=== PATIENT | female | born 1965 | race Caucasian/White ===

== ENCOUNTER 2016-12-03 19:27 | Emergency (ER) | payer SELFPAY ==
[2016-12-03 19:40] VITALS: BP 132/83; PULSE 79; TEMP 98.1; BMI 21.9
[2016-12-03 19:41] LABS: PH,URINE 5.5 (4.5-8); URINE APPEARANCE Clear; URINE BILIRUBIN Negative (NEGATIVE); URINE BLOOD 1 (NEGATIVE); URINE COLOR YELLOW; URINE GLUCOSE (UA) Negative (NEGATIVE); URINE KETONE Negative (NEGATIVE); URINE LEUK ESTERASE Negative (NEGATIVE); URINE NITRITE Negative (NEGATIVE); URINE PROTEIN Negative (NEGATIVE); URINE UROBILINOGEN 0.2 E.U/dl (0.2-1.0)
--- NOTE | 2016-12-03 21:07 | PDOC ---
History of Present Illness - General Chief Complaint: Pain Stated Complaint: PELVIC PAIN Time Seen by Provider: 12/03/16 19:29 - History of Present Illness Initial Comments: This 51-year-old woman with long history of depression/anxiety and insomnia, presents with several week history of pelvic pain radiating to the right flank. She states that the pain intermittently becomes more severe and she is currently feeling more severe pain. She was told by her general medical doctor that she has blood in her urine although it is not visibly bloody. She states that she has been told she has no urinary tract infection and was referred to a urologist for further workup. Patient states that she's been trying to find a urologist but most cannot see her for several weeks and many are not covered by her insurance. Patient also has had progressive urgency incontinence/ overactive bladder type symptoms. She has not yet had full workup of this condition and is not on any medications for it currently. No history of burning with urination, bladder or kidney infection. Past History - Past Medical History Allergies/Adverse Reactions: Allergies Allergy/AdvReac Type Severity Reaction Status Date / Time No Known Allergies Allergy Verified 03/18/16 08:10 Home Medications: Ambulatory Orders Clonazepam [Klonopin] 6 mg PO HS 06/26/13 Bupropion HCl [Wellbutrin -] 200 mg PO DAILY 03/18/16 Dextroamphetamine/Amphetamine [Adderall Xr 15 mg Capsule] 15 mg PO DAILY Lamotrigine [Lamictal] 400 mg PO HS 03/18/16 Lurasidone HCl [Latuda] 60 mg PO HS 03/18/16 Psychiatric Problems: Yes (anxiety, depression for many years) Other medical history: INSOMNIA - Immunization History Immunization Up to Date: No - Psycho/Social/Smoking Cessation Hx Anxiety: Yes Suicidal Ideation: No Smoking Status: No Smoking History: Current every day smoker Have you smoked in the past 12 months: Yes Number of Cigarettes Smoked Daily: 20 Information on smoking cessation initiated: Yes 'Breaking Loose' booklet given: 12/03/16 Hx Alcohol Use: Yes Drug/Substance Use Hx: No Substance Use Type: Alcohol Review of Systems - Review of Systems Able to Perform ROS?: Yes Comments:: 12 point review of systems is negative except for what is noted in the history of present illness *Physical Exam - Vital Signs Last Vital Signs Temp Pulse Resp BP Pulse Ox 98.1 F 79 16 132/83 99 12/03/16 19:38 12/03/16 19:38 12/03/16 19:38 12/03/16 19:38 12/03/16 19:38 - Physical Exam Comments: Adult female, alert and oriented 3, in mild distress secondary to right flank pain Vital signs as noted Adult female, alert and oriented 3, in no acute distress Vital signs as noted HEAD: No contusions, abrasions or lacerations of the scalp; no facial ecchymosis , deformities or tenderness EYES: Pupils equal, round and reactive to light, extraocular movements intact, sclera anicteric, conjunctiva clear PHARYNX: No erythema, exudate or edema; mucous membranes moist NECK: Supple, nontender, no masses or bruits LUNGS: Clear to auscultation bilaterally CARDIAC: S1, S2 normal; no extra sounds, rubs or murmurs heard ABDOMEN:Normoactive bowel sounds, right flank tenderness, no masses, no organomegaly EXTREMITIES: Normal range of motion, no edema,deformity or tenderness NEUROLOGICAL: Cranial nerves II through XII grossly intact. Normal speech, normal gait.moving all 4 extremities equally, Sensation intact in all extremities. PSYCH: Normal mood, normal affect. SKIN: Warm, Dry, normal turgor, no rashes or lesions noted. ED Treatment Course - ADDITIONAL ORDERS Additional order review: Laboratory Results 12/03/16 19:30 Urine Color Yellow Urine Appearance Clear Urine pH 5.5 Ur Specific Taylor 1.015 Urine Protein Negative Urine Glucose (UA) Negative Urine Ketones Negative Urine Blood 1 H Urine Nitrite Negative Urine Bilirubin Negative Urine Urobilinogen 0.2 e.u/dl Ur Leukocyte Esterase Negative Urine RBC 5-8 Urine WBC 3-5 Ur Epithelial Cells 10-15 Progress Note - Progress Note Progress Note: Urinalysis shows 1+ blood in dipstick: 5-8 red blood cells/3-5 white blood cells per high-power field Because of this patient's progressive right flank/pelvic pain and microscopic hematuria, will have a renal stone protocol noncontrast CT to evaluate for renal stone/hydronephrosis or other acute abnormalities. Noncontrast abdominal/pelvic CT shows no evidence of hydronephrosis/hydroureter or renal stones. There is no mass/obstruction/free fluid or other acute abnormality. Results discussed with the patient. She should follow-up with urologist as originally planned within the next week for workup of her urinary symptoms as well as her pelvic pain. She should return to the emergency room if she has severe pain or develops vomiting/fever. *DC/Admit/Observation/Transfer Diagnosis at time of Disposition: Urinary frequency, Pelvic pain - Discharge Dispostion Disposition: HOME Condition at time of disposition: Stable - Referrals Referrals: STAFF,NOT ON [Primary Care Provider] - Manfred Hernandez MD [Staff Physician] - Call tomorrow - Patient Instructions Printed Discharge Instructions: Chronic Pelvic Pain Additional Instructions: Follow-up with urology group (Dr. Hernandez) within the next week Return to ER if your symptoms worsen
== END 2016-12-03 23:23 | disposition home or self-care (01) ==
LOC: FER 19:27
DX: R35.0 Frequency of micturition (principal); R10.2 Pelvic and perineal pain; F17.210 Nicotine dependence, cigarettes, uncomplicated; F41.8 Other specified anxiety disorders; G47.00 Insomnia, unspecified
CPT/HCPCS: 74176; 81003; 81015; 99282-25

== ENCOUNTER 2018-02-05 11:40 | Emergency (ER) | payer OTHER ==
[2018-02-05 12:04] VITALS: BP 116/79; PULSE 62; TEMP 98.9; BMI 21.0
[2018-02-05] MEDS ORDERED: NAPROXEN 500 MG TABLET (FP) PO ONE (13:08)
[2018-02-05] MEDS ORDERED: ONDANSETRON 4 MG TABLET PO ONE ×2 (13:08→13:12)
[2018-02-05] MEDS ORDERED: NAPROXEN 500 MG TABLET (FP) ONE (13:10)
[2018-02-05] MEDS ORDERED: ONDANSETRON *ODT* 4 MG TABLET ONE (13:11)
--- NOTE | 2018-02-05 13:14 | PDOC ---
History of Present Illness - General Chief Complaint: Cold Symptoms Stated Complaint: COLD SYMPTOMS Time Seen by Provider: 02/05/18 12:24 - History of Present Illness Initial Comments: 02/05/18 13:09 52-year-old female with a history of anxiety, depression presents the emergency department with 6 days of cold symptoms. She reports 6 days ago she began to have a sore throat, body aches, and subjective fevers as well as a nonproductive cough. Over the last 2 days she reports her chest congestion became worse and she also developed a gradual onset global headache. She reports significant pain in her lower anterior ribs when coughing. She also reports losing her voice 3 days ago but reports improvement in her voice over the last 24 hours. She has tried NyQuil and theraflu with minimal improvement in symptoms. Reports fever to 101 two days ago. She has not seen her primary care doctor. She presented to the emergency department today because her daughter urged her to. The patient reports multiple sick contacts when visiting her mother in the hospital in [place] last week. Denies shortness of breath, stiff neck, rashes, chest pain, abdominal pain, dysuria, lower extremity edema, focal weakness or numbness. Past History - Past Medical History Allergies/Adverse Reactions: Allergies Allergy/AdvReac Type Severity Reaction Status Date / Time No Known Allergies Allergy Verified 02/05/18 11:43 Home Medications: Ambulatory Orders Clonazepam [Klonopin] 6 mg PO HS 06/26/13 Bupropion HCl [Wellbutrin -] 200 mg PO DAILY 03/18/16 Dextroamphetamine/Amphetamine [Adderall Xr 15 mg Capsule] 15 mg PO DAILY Lamotrigine [Lamictal] 400 mg PO HS 03/18/16 Lurasidone HCl [Latuda] 60 mg PO HS 03/18/16 COPD: No Psychiatric Problems: Yes (anxiety, depression for many years) - Immunization History Immunization Up to Date: No - Suicide/Smoking/Psychosocial Hx Smoking Status: No Smoking History: Current every day smoker Have you smoked in the past 12 months: Yes Number of Cigarettes Smoked Daily: 20 Information on smoking cessation initiated: Yes 'Breaking Loose' booklet given: 12/03/16 Hx Alcohol Use: Yes Drug/Substance Use Hx: No Substance Use Type: Alcohol Review of Systems - Review of Systems Comments:: 02/05/18 13:12 GENERAL/CONSTITUTIONAL: +fever, no chills. No weakness. HEAD, EYES, EARS, NOSE AND THROAT: No change in vision. No ear pain or discharge. +sore throat. GASTROINTESTINAL: +nausea, no vomiting, diarrhea or constipation. GENITOURINARY: No dysuria, frequency, or change in urination. CARDIOVASCULAR: No chest pain or shortness of breath. RESPIRATORY: +cough, no wheezing, or hemoptysis. MUSCULOSKELETAL: +bodyaches SKIN: No rash NEUROLOGIC: +headache, no vertigo, loss of consciousness, or change in strength/ sensation. ENDOCRINE: No increased thirst. No abnormal weight change. HEMATOLOGIC/LYMPHATIC: No anemia, easy bleeding, or history of blood clots. ALLERGIC/IMMUNOLOGIC: No hives or skin allergy. *Physical Exam - Vital Signs Last Vital Signs Temp Pulse Resp BP Pulse Ox 98.9 F 62 16 116/79 99 02/05/18 11:42 02/05/18 11:42 02/05/18 11:42 02/05/18 11:42 02/05/18 11:42 - Physical Exam Comments: 02/05/18 13:13 GENERAL: Awake, alert, and fully oriented, in no acute distress HEAD: No signs of trauma EYES: PERRLA, EOMI, sclera anicteric, conjunctiva clear ENT: Auricles normal inspection, hearing grossly normal, nares patent, oropharynx clear without exudates. Moist mucosa NECK: Normal ROM, supple, no lymphadenopathy, JVD, or masses LUNGS: Breath sounds equal, clear to auscultation bilaterally. No wheezes, and no crackles HEART: Regular rate and rhythm, normal S1 and S2, no murmurs, rubs or gallops ABDOMEN: Soft, nontender, normoactive bowel sounds. No guarding, no rebound. No masses EXTREMITIES: Normal range of motion, no edema. No clubbing or cyanosis. No cords, erythema, or tenderness NEUROLOGICAL: Normal speech, cranial nerves intact, negative pronator drift, 5/ 5 strength in all 4 extremities, normal sensation to light touch in all 4 extremities, normal cerebellar exam, normal gait, normal reflexes and tone SKIN: Warm, Dry, normal turgor, no rashes or lesions noted. ED Treatment Course - RADIOLOGY Radiology Studies Ordered: Category Date Time Status CHEST PA & LAT [RAD] Stat Radiology 02/05/18 13:07 Ordered Medical Decision Making - Medical Decision Making 02/05/18 13:13 52-year-old female presents with 6 days of cold symptoms. Vitals within normal limits. Exam normal, lungs are clear with no crackles. Symptoms likely secondary to viral syndrome, possibly the flu however patient is out of the treatment window. Pain in her lower anterior ribs is likely secondary to soreness from coughing. We will obtain a chest x-ray to rule out pneumonia given length of symptoms and provide symptomatic control and reassess. 02/05/18 13:55 X-ray negative. Patient reports some improvement in symptoms after naproxen and Zofran. Likely viral syndrome with bronchitis and possible sinusitis. Will prescribe azithromycin given recent fever and advised patient to follow up with primary doctor within 2 days. Patient requests discharge home. I discussed the physical exam findings, ancillary test results and final diagnoses with the patient. I answered all of the patient's questions. The patient was satisfied with the care received and felt comfortable with the discharge plan and treatment plan. The patient will call their primary care physician within 24 hours to arrange follow-up and will return to the Emergency Department with any new, persistent or worsening symptoms. *DC/Admit/Observation/Transfer Diagnosis at time of Disposition: Bronchitis - Discharge Dispostion Disposition: HOME Condition at time of disposition: Good Admit: No - Referrals Referrals: Lula Arango MD [Primary Care Provider] - - Patient Instructions Printed Discharge Instructions: DI for Acute Bronchitis, DI for Viral Upper Respiratory Infection -- Adult Additional Instructions: Follow-up with your primary care doctor in 2 days. Take the antibiotics as prescribed. Stay hydrated and drink plenty of fluids. Return to the emergency department if you have any new, worsening or concerning symptoms. - Post Discharge Activity - Attestations Physician Attestion: 02/05/18 13:57 I, Dr. Urmila Giordano MD, attest that this document has been prepared under my direction and personally reviewed by me in its entirety. I further attest, that it accurately reflects all work, treatment, procedures and medical decision -making performed by me.
[2018-02-05] MEDS ORDERED: AZITHROMYCIN 500 MG TABLET PO ONE (13:57)
[2018-02-05] MEDS ORDERED: AZITHROMYCIN 500 MG TABLET ONE (14:00)
== END 2018-02-05 14:06 | disposition home or self-care (01) ==
LOC: FER 11:40
DX: J40 Bronchitis, not specified as acute or chronic (principal)
CPT/HCPCS: 71046-TC-FY; 99282-25

== ENCOUNTER 2018-03-09 09:48 | Emergency (ER) | payer OTHER ==
--- NOTE | 2018-03-09 09:53 | PDOC ---
History of Present Illness - General Chief Complaint: Respiratory Stated Complaint: PERSISTANT COUGH WEAK Time Seen by Provider: 03/09/18 09:51 History Source: Patient (Patient walked in complaining of persistent cough, generalized weakness, on and off foe at least a month. was seen then , dg as bronchitis. Smoker , decreased lately No flu vaccine ) Exam Limitations: No Limitations - History of Present Illness Timing/Duration: unsure, getting worse Severity: moderate Associated Symptoms: reports: loss of appetite, weakness Past History - Travel Traveled outside of the country in the last 30 days: No Close contact w/someone who was outside of country & ill: No - Past Medical History Allergies/Adverse Reactions: Allergies Allergy/AdvReac Type Severity Reaction Status Date / Time No Known Allergies Allergy Verified 03/09/18 09:49 Home Medications: Ambulatory Orders Clonazepam [Klonopin] 2 mg PO HS 06/26/13 Bupropion HCl [Wellbutrin -] 75 mg PO DAILY 03/18/16 Ibuprofen [Motrin -] 400 mg PO TID #21 tablet 03/09/18 Sulfamethoxazole/Trimethoprim [Bactrim Ds -] 1 tab PO BID #14 tablet 03/09/18 COPD: No Psychiatric Problems: Yes (anxiety, depression for many years) - Immunization History Immunization Up to Date: No - Suicide/Smoking/Psychosocial Hx Smoking Status: No Smoking History: Current every day smoker Have you smoked in the past 12 months: Yes Number of Cigarettes Smoked Daily: 20 'Breaking Loose' booklet given: 12/03/16 Hx Alcohol Use: Yes Drug/Substance Use Hx: No Substance Use Type: Alcohol Review of Systems - Review of Systems Able to Perform ROS?: Yes Is the patient limited [place] Citizen proficient: Yes Constitutional: Yes: See HPI, Malaise HEENTM: Yes: See HPI Respiratory: Yes: Cough Cardiac (ROS): No: Symptoms Reported, See HPI, Chest Pain, Edema, Irregular Heart Rate, Lightheadedness, Palpitations, Syncope, Chest Tightness, Other ABD/GI: No: Symptoms Reported, See HPI, Abdominal Distended, Abd. Pain w/ defecation, Blood Streaked Bowels, Constipated, Diarrhea, Difficulty Swallowing , Nausea, Poor Appetite, Poor Fluid Intake, Rectal Bleeding, Vomiting, Indigestion, Abdominal cramping, Tarry Stools, Other Psychiatric: Yes: Anxiety ED Treatment Course - LABORATORY CBC & Chemistry Diagram: 03/09/18 11:58 03/09/18 11:58 *DC/Admit/Observation/Transfer Diagnosis at time of Disposition: Cough, Bronchitis - Discharge Dispostion Disposition: HOME Condition at time of disposition: Stable Admit: No - Prescriptions Prescriptions: Ibuprofen [Motrin -] 400 mg PO TID #21 tablet Sulfamethoxazole/Trimethoprim [Bactrim Ds -] 1 tab PO BID #14 tablet - Referrals - Patient Instructions Printed Discharge Instructions: DI for Chronic Bronchitis, How to Quit Smoking , All Forms of Smoking Are Bad for You Additional Instructions: QUIT SMOKING !!!!! - Post Discharge Activity
[2018-03-09 10:11] VITALS: BP 133/89; PULSE 87; TEMP 100; BMI 21.0
[2018-03-09] MEDS ORDERED: ALBUTEROL SO4 2.5/IPRATROPIUM 0.5 INH SOL 3 ML VIAL.NEB. NEB ONE ×2 (11:37→12:16)
[2018-03-09 12:30] LABS: BASO % 0.6 % (0-2.0); EOS % 4.6 % (0-4.5); HEMATOCRIT 38.1 % (32.4-45.2); HEMOGLOBIN 12.6 GM/dl (10.7-15.3); LYMPH % 12.7 % (8-40); MCH 29.3 pg (25.7-33.7); MEAN CELL VOLUME 88.7 fl (80-96); MEAN PLT VOLUME 8.5 fl (7.5-11.1); MONO % 7.4 % (3.8-10.2); NEUT % 74.7 % (42.8-82.8); PLATELET COUNT 212 K/MM3 (134-434); RDW 13.6 % (11.6-15.6)
[2018-03-09 13:03] LABS: ALBUMIN 3.8 g/dl (3.4-5.0); ANION GAP 5 (8-16); BLOOD UREA NITROGEN 17 mg/dL (7-18); CALCIUM 8.7 mg/dL (8.5-10.1); CHLORIDE 106 mmol/L (98-107); CO2 30 mmol/L (21-32); GLUCOSE,RANDOM 92 mg/dL (74-106); POTASSIUM 4.1 mmol/L (3.5-5.1); SGPT/ALT 28 U/L (12-78); SODIUM 141 mmol/L (136-145)
[2018-03-09 13:06] LABS: ALK PHOS 81 U/L (45-117); BILIRUBIN,TOTAL 0.2 mg/dL (0.2-1.0); CREATININE 0.7 mg/dL (0.55-1.02); SGOT/AST 21 U/L (15-37); TOT PROT 6.5 g/dl (6.4-8.2)
[2018-03-09] MEDS ORDERED: SULFAMETHOXAZOLE/TRIMETHOPRIM 800MG/160MG D.S. TABLET PO ONE (13:10)
[2018-03-09] MEDS ORDERED: IBUPROFEN 400 MG TABLET (FP) PO ONE ×2 (13:10→13:14)
[2018-03-09] MEDS ORDERED: SULFAMETHOXAZOLE/TRIMETHOPRIM 800MG/160MG D.S. TABLET ONE (13:14)
== END 2018-03-09 13:22 | disposition home or self-care (01) ==
LOC: FER 09:48
PROC: 3E0F7GC Introduction of Other Therapeutic Substance into Respiratory Tract, Via Natural or Artificial Opening (ICD-10-PCS; principal; 2018-03-09)
DX: J40 Bronchitis, not specified as acute or chronic (principal); R05 Cough; F17.210 Nicotine dependence, cigarettes, uncomplicated; F41.8 Other specified anxiety disorders
CPT/HCPCS: 36415; 71046-TC-FY; 80053; 85025; 94640; 99282-25

== ENCOUNTER 2019-12-15 18:29 | Observation (INO) | payer OTHER ==
--- NOTE | 2019-12-15 18:38 | PDOC ---
Rapid Medical Evaluation Time Seen by Provider: 12/15/19 18:32 Medical Evaluation: Allergies Allergy/AdvReac Type Severity Reaction Status Date / Time No Known Allergies Allergy Verified 12/15/19 18:32 12/15/19 18:33 I have performed a brief in-person evaluation of this patient. The patient presents with a chief complaint of: CP and BRUNSON today. H/o anxiety, depression, HTN , CAD w/ 1 stent, former smoker Pertinent physical exam findings:ida uncomfortable, stable I have ordered the following:ekg/cxr/labs The patient will proceed to the ED for further evaluation Discharge Disposition - Diagnosis Chest pain Qualifiers: Chest pain type: unspecified Qualified Code(s): R07.9 - Chest pain, unspecified - Referrals - Patient Instructions - Post Discharge Activity
[2019-12-15 18:39] VITALS: BMI 21.9
[2019-12-15 21:23] LABS: BASO % 0.7 % (0-2.0); EOS % 2.6 % (0-4.5); HEMATOCRIT 38.7 % (32.4-45.2); LYMPH % 29.9 % (8-40); MCH 29.7 pg (25.7-33.7); MCHC 33.6 g/dl (32.0-36.0); MEAN CELL VOLUME 88.5 fl (80-96); MEAN PLT VOLUME 8.8 fl (7.5-11.1); MONO % 4.8 % (3.8-10.2); PLATELET COUNT 309 K/MM3 (134-434); RBC 4.37 M/mm3 (3.60-5.2); RDW 13.7 % (11.6-15.6); WHITE BLOOD COUNT 5.6 K/mm3 (4.0-10.0)
[2019-12-15 21:58] LABS: ALBUMIN 4.4 g/dl (3.4-5.0); ALK PHOS 67 U/L (45-117); ANION GAP 8 MMOL/L (8-16); BILIRUBIN,TOTAL 0.5 mg/dL (0.2-1); BLOOD UREA NITROGEN 17.7 mg/dL (7-18); CALCIUM 9.2 mg/dL (8.5-10.1); CHLORIDE 103 mmol/L (98-107); CO2 26 mmol/L (21-32); CREATININE 0.8 mg/dL (0.55-1.3); GLUCOSE,RANDOM 62 mg/dL (74-106); POTASSIUM 4.5 mmol/L (3.5-5.1); SGOT/AST 21 U/L (15-37); SGPT/ALT 27 U/L (13-61); SODIUM 137 mmol/L (136-145); TOT PROT 7.2 g/dl (6.4-8.2)
[2019-12-15] MEDS ORDERED: ASPIRIN 325 MG TABLET PO ONE (22:47)
--- NOTE | 2019-12-15 22:47 | PDOC ---
History of Present Illness - General Chief Complaint: Chest Pain Stated Complaint: CHEST PAIN Time Seen by Provider: 12/15/19 18:32 History Source: Patient Exam Limitations: No Limitations Past History - Past Medical History Allergies/Adverse Reactions: Allergies Allergy/AdvReac Type Severity Reaction Status Date / Time No Known Allergies Allergy Verified 12/15/19 18:32 Home Medications: Ambulatory Orders Clonazepam [Klonopin] 2 mg PO HS 06/26/13 Bupropion HCl [Wellbutrin -] 75 mg PO DAILY 03/18/16 Ibuprofen [Motrin -] 400 mg PO TID #21 tablet 03/09/18 Sulfamethoxazole/Trimethoprim [Bactrim Ds -] 1 tab PO BID #14 tablet 03/09/18 Cardiac Disorders: Yes (STENT X1) COPD: No HTN: Yes Psychiatric Problems: Yes (anxiety, depression for many years) - Immunization History Immunization Up to Date: No - Psycho Social/Smoking Cessation Hx Smoking Status: No Smoking History: Former smoker Have you smoked in the past 12 months: No Number of Cigarettes Smoked Daily: 20 Information on smoking cessation initiated: No 'Breaking Loose' booklet given: 12/03/16 Hx Alcohol Use: No Drug/Substance Use Hx: No Substance Use Type: Alcohol *Physical Exam - Vital Signs Last Vital Signs Temp Pulse Resp BP Pulse Ox 97.7 F 84 18 125/50 L 100 12/15/19 18:32 12/15/19 18:32 12/15/19 18:32 12/15/19 18:32 12/15/19 18:32 - Physical Exam General Appearance: No: Apparent Distress Respiratory/Chest: positive: Lungs Clear, Normal Breath Sounds. negative: Respiratory Distress Cardiovascular: positive: Regular Rhythm, Regular Rate, S1, S2. negative: Murmur Gastrointestinal/Abdominal: positive: Normal Bowel Sounds, Soft. negative: Tender, Distended, Guarding, Rebound Extremity: negative: Pedal Edema, Swelling, Calf Tenderness Integumentary: positive: Normal Color Neurologic: positive: Alert, Normal Mood/Affect Heart Score/ECG Review - History History: Slightly suspicious - Electrocardiogram EKG: Non specific repolarization disturbance - Age Age: 45-65 - Risk Factors Risk Factors Heart Score: Yes Hx Hypertension, Yes Smoking History Based on the list above the patient has:: >/=3 risk factors or Hx atherosclerotic disease - Troponin Troponin: </= normal limit - Score Heart Score - Total: 4 ED Treatment Course - LABORATORY CBC & Chemistry Diagram: 12/15/19 20:49 12/15/19 20:49 - ADDITIONAL ORDERS Additional order review: Laboratory Results 12/15/19 20:49 Sodium 137 Potassium 4.5 Chloride 103 Carbon Dioxide 26 Anion Gap 8 BUN 17.7 Creatinine 0.8 Est GFR (CKD-EPI)AfAm 95.52 Est GFR (CKD-EPI)NonAf 82.42 Random Glucose 62 L Calcium 9.2 Total Bilirubin 0.5 AST 21 ALT 27 Alkaline Phosphatase 67 Creatine Kinase 73 Troponin I < 0.02 Total Protein 7.2 Albumin 4.4 12/15/19 20:49 RBC 4.37 MCV 88.5 MCHC 33.6 RDW 13.7 MPV 8.8 Neutrophils % 62.0 Lymphocytes % 29.9 Monocytes % 4.8 Eosinophils % 2.6 Basophils % 0.7 - RADIOLOGY Radiology Studies Ordered: Category Date Time Status CHEST PA & LAT [RAD] Stat Radiology 12/15/19 20:38 Completed Medical Decision Making - Medical Decision Making 54 y/o F hx of anxiety, depression, HTN, CAD s/p PCIx1 (at age 40), former smoker presents with sharp, nonradiating substernal CP since 5 PM, intermittent in nature. CP started at rest and is not exertional. Denies fever, URI sxs, sob , abd pain, n/v, calf pain, leg swelling. Denies drug use. +social alcohol use. Denies FH of CAD or [place]. Denies recent stress test EKG: NSR at 72 bpm, TWI lead V3 CXR neg, shows abdominal distension Abdomen nontender on exam; patient mentions not eating all day and feeling gassy Is passing gas and having bowel movements (last BM today); denies hx of abdominal surgeries Not suspicious for bowel obstruction Given HS of 4, will admit for ACS eval 12/15/19 22:41 Discharge - Discharge Information Problems reviewed: Yes Clinical Impression/Diagnosis: Chest pain Qualifiers: Chest pain type: unspecified Qualified Code(s): R07.9 - Chest pain, unspecified - Admission Yes - Follow up/Referral Referrals: Lula Arango MD [Primary Care Provider] - - Patient Discharge Instructions - Post Discharge Activity
--- NOTE | 2019-12-15 23:51 | PN ---
Teaching Attending Note Name of Resident: Killian Ly ATTENDING PHYSICIAN STATEMENT I saw and evaluated the patient. I reviewed the resident's note and discussed the case with the resident. I agree with the resident's findings and plan as documented. SUBJECTIVE: Patient is a 54 year old woman with PMH of Anxiety, Depression, HTN, CAD (s/p PCIx1 at age 40) and Former smoker who presents with sharp, nonradiating, intermittent, substernal chest pain since 5 PM. Chest pain started at rest and is not exertional. Denies fever, URI symptoms, SOB, abdominal pain, nausea, vomiting, calf pain or leg swelling. Patient reports not eating all day and feeling gassy. Is passing gas and having normal bowel movements (last BM today) . No history of abdominal surgeries. Has been under a lot of stress because her mother recently. Denies FH of premature CAD or [place]. No recent cardiac stress test, does not follow up with her stock preparation operator since stent placement and is not on ASA or Plavix. Denies alcohol, tobacco or illicit drug use. No sick contacts or recent travels. OBJECTIVE: Alert Vital Signs Period Temp Pulse Resp BP Sys/Mccarty Pulse Ox Last 24 Hr 97.7 F 84 18 125/50 100 HEENT: No Jaundice, eye redness or discharge, PERRLA, EOMI. Normocephalic, atraumatic. External ears are normal and hearing is grossly intact. No nasal discharge. Neck: Supple, nontender. No palpable adenopathy or thyromegaly. No JVD Chest: Good effort. Clear to auscultation and percussion. Heart: Regular. No S3, rub or murmur Abdomen: Not distended, soft, nontender and no HSM. No rebound or guarding. Normal bowel sounds. Ext: Peripheral pulses intact. No leg edema. Skin: Warm and dry. No petechiae, rash or ecchymosis. Neuro: Alert. Oriented x3. CN 2-12 grossly intact. Sensation grossly intact in all four extremities and DTR are symmetric. Psych: Appropriate mood and affect. Good insight. Home Medications Medication Instructions Recorded Clonazepam [Klonopin] 2 mg PO HS 06/26/13 Bupropion HCl [Wellbutrin -] 75 mg PO DAILY 03/18/16 Ibuprofen [Motrin -] 400 mg PO TID #21 tablet 03/09/18 Sulfamethoxazole/Trimethoprim 1 tab PO BID #14 tablet 03/09/18 [Bactrim Ds -] Abnormal Lab Results 12/15/19 20:49 Random Glucose 62 L ASSESSMENT AND PLAN: 1. Chest pain - EKG shows NSR with T wave inversion in V2-3, flattening on III and aVF - different from her last EKG on record from 2013. Initial troponin is negative. Got ASA 325 mg PO in the ER. Now comfortable and painfree. Pain is atypical, but with her risk factors, will admit to telemetry to rule out ACS, get ECHO, fasting lipids, urinalysis, urine toxicology and consult cardiology. During the day will call her stock preparation operator to get her old records and clarify why she is not on ASA or Plavix. No acute abnormality on CXR but shows abdominal distension. No evidence of bowel obstruction - feels gassy - will treat with Simethicone. Will continue comprehensive care for all of patients comorbid conditions. 2. DVT prophylaxis - Lovenox 40 mg SQ q 24 hours. 3. Advance directives - Full code
[2019-12-16] MEDS ORDERED: ASPIRIN 325 MG ENTERIC COATED TABLET (FP) ONE
--- NOTE | 2019-12-16 00:16 | HP ---
CHIEF COMPLAINT: chest pain PCP: HISTORY OF PRESENT ILLNESS: Patient is a 54 year old female with history of coronary artery disease (s/p 1 stent 15 years ago in [place]), anxiety, depression, hypertension presents with complaint of chest pain. Endorses sharp pain that occured approx 5pm this afternoon while she was getting dressed. States pain was localized to the midline substernally, nonradiating. Was mildly associated with shortness of breath. Pain lasted approx 5-10 minutes at its most severe, without palliative features. Denies loss of consciousness, trauma. Patient denies taking Nitroglcerin, NSAIDs, or any analgesics. Endorses similar pain that occurred yesterday, that spontaneously resolved. Upon my encounter, patient is free of chest pain, comfortable. Denies palpitations, shortness of breath, nausea, vomiting. 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 Independent in activities of daily living Smoking: Former smoker, quit 1 year ago. Alcohol: Endorses approx 3-6 drinks on weekends. Drugs: Denies Allergies No Known Allergies Allergy (Verified 12/15/19 18:32) HOME MEDICATIONS: Home Medications Medication Instructions Recorded Clonazepam [Klonopin] 2 mg PO HS 06/26/13 Bupropion HCl [Wellbutrin -] 75 mg PO DAILY 03/18/16 Ibuprofen [Motrin -] 400 mg PO TID #21 tablet 03/09/18 Sulfamethoxazole/Trimethoprim 1 tab PO BID #14 tablet 03/09/18 [Bactrim Ds -] REVIEW OF SYSTEMS CONSTITUTIONAL: Absent: fever, chills, diaphoresis, generalized weakness, malaise, loss of appetite, weight change HEENT: Absent: rhinorrhea, nasal congestion, throat pain, throat swelling, difficulty swallowing, mouth swelling, ear pain, eye pain, visual changes CARDIOVASCULAR: Admits: chest pain (resolved). Absent: syncope, palpitations, irregular heart rate, lightheadedness, peripheral edema RESPIRATORY: Absent: cough, shortness of breath, dyspnea with exertion, orthopnea, wheezing, stridor, hemoptysis GASTROINTESTINAL: Admits: abdominal cramping/ gas. Absent: abdominal distension, nausea, vomiting , diarrhea, constipation, melena, hematochezia GENITOURINARY: Absent: dysuria, frequency, urgency, hesitancy, hematuria, flank pain, genital pain MUSCULOSKELETAL: Absent: myalgia, arthralgia, joint swelling, back pain, neck pain SKIN: Absent: rash, itching, pallor HEMATOLOGIC/IMMUNOLOGIC: Absent: easy bleeding, easy bruising, lymphadenopathy, frequent infections ENDOCRINE: Absent: unexplained weight gain, unexplained weight loss, heat intolerance, cold intolerance NEUROLOGIC: Absent: headache, focal weakness or paresthesias, dizziness, unsteady gait, seizure, mental status changes, bladder or bowel incontinence PSYCHIATRIC: Absent: anxiety, depression, suicidal or homicidal ideation, hallucinations. PHYSICAL EXAMINATION Vital Signs - 24 hr 12/15/19 18:32 Temperature 97.7 F Pulse Rate 84 Respiratory 18 Rate Blood Pressure 125/50 L O2 Sat by Pulse 100 Oximetry (%) GENERAL: The patient is awake, alert, and fully oriented, in no acute distress. HEAD: Normocephalic, atraumatic. EYES: PERRL, extraocular movements intact, sclera anicteric, conjunctiva clear. ENT: Oropharynx clear, without erythema or exudates. Moist mucous membranes. NECK: Trachea midline, full range of motion. Supple without lymphadenopathy. LUNGS: Breath sounds equal, clear to auscultation bilaterally. No wheezes, no crackles. No accessory muscle use. HEART: Regular rate and rhythm. S1, S2 without murmur, rub or gallop. ABDOMEN: Soft, nondistended, nontender to light and deep palpation x4 quadrants. No rebound tenderness, no guarding. Normoactive bowel sounds x4 quadrants. No hepatosplenomegaly, no masses appreciated. EXTREMITIES: 2+ radial, dorsalis pedis pulses bilaterally. Warm, well-perfused. No lower extremity edema bilaterally. NEUROLOGICAL: Cranial nerves II through XII grossly intact. Normal speech. No gross focal deficits. PSYCH: Normal mood, normal affect upon my encounter. SKIN: Warm, dry. Laboratory Results - last 24 hr 12/15/19 12/15/19 20:49 20:49 WBC 5.6 RBC 4.37 Hgb 13.0 Hct 38.7 MCV 88.5 MCH 29.7 MCHC 33.6 RDW 13.7 Plt Count 309 MPV 8.8 Absolute Neuts (auto) 3.5 Neutrophils % 62.0 Lymphocytes % 29.9 Monocytes % 4.8 Eosinophils % 2.6 Basophils % 0.7 Nucleated RBC % 0 Sodium 137 Potassium 4.5 Chloride 103 Carbon Dioxide 26 Anion Gap 8 BUN 17.7 Creatinine 0.8 Est GFR (CKD-EPI)AfAm 95.52 Est GFR (CKD-EPI)NonAf 82.42 Random Glucose 62 L Calcium 9.2 Total Bilirubin 0.5 AST 21 ALT 27 Alkaline Phosphatase 67 Creatine Kinase 73 Troponin I < 0.02 Total Protein 7.2 Albumin 4.4 ASSESSMENT/PLAN: Patient is a 54 year old female with history of coronary artery disease (s/p 1 stent 15 years ago in [place]), anxiety, depression, hypertension presents with complaint of chest pain. Atypical chest pain -EKG reveals normal sinus rhythm with nonspecific T wave abnormalities -Initial Troponin 0.02. Will trend. -Cardiac Telemetry monitoring -Cardiac transthoracic ECHO -Cardiology evaluation (Dr. Nicole) appreciated. Patient states she was never initiated on any aspirin/ clopidogrel even after her stent placement. -NPO pending cardiology evaluation in anticipation of any stress test/ intervention. -Urine toxicology Anxiety, depression -Continue home Welbutrin, Clonazepam, Trazodone History of hypertension -Currently normotensive, states she is not on any home antihypertensives. -Monitor BP closely FEN -IV normal saline at 83mL/ hour -Follow BMP -NPO Prophylaxis -SCDs bilateral lower extremities Disposition -Telemetry observation. Visit type - Emergency Visit Emergency Visit: Yes ED Registration Date: 12/15/19 Care time: The patient presented to the Emergency Department on the above date and was hospitalized for further evaluation of their emergent condition. - New Patient This patient is new to me today: Yes Date on this admission: 12/16/19 - Critical Care Critical Care patient: No ATTENDING PHYSICIAN STATEMENT I saw and evaluated the patient. I reviewed the resident's note and discussed the case with the resident. I agree with the resident's findings and plan as documented. SUBJECTIVE: OBJECTIVE: ASSESSMENT AND PLAN:
[2019-12-16] MEDS ORDERED: SIMETHICONE 80 MG TAB.CHEW (FP) PO PRN (00:19)
[2019-12-16] MEDS ORDERED: SODIUM CHLORIDE 1,000 ML IV SCH (00:30)
[2019-12-16 08:17] LABS: MCH 30.2 pg (25.7-33.7); MCHC 34.3 g/dl (32.0-36.0); MEAN CELL VOLUME 88.1 fl (80-96); MEAN PLT VOLUME 8.2 fl (7.5-11.1); PLATELET COUNT 267 K/MM3 (134-434); RBC 3.98 M/mm3 (3.60-5.2); RDW 13.8 % (11.6-15.6); WHITE BLOOD COUNT 4.3 K/mm3 (4.0-10.0)
[2019-12-16 08:43] LABS: ALBUMIN 3.7 g/dl (3.4-5.0); BILIRUBIN,TOTAL 0.3 mg/dL (0.2-1); BLOOD UREA NITROGEN 17.1 mg/dL (7-18); CALCIUM 8.5 mg/dL (8.5-10.1); CREATININE 0.8 mg/dL (0.55-1.3); MAGNESIUM 2.3 mg/dL (1.8-2.4); PHOSPHOROUS 4.3 mg/dL (2.5-4.9); POTASSIUM 4.1 mmol/L (3.5-5.1); TOT PROT 6.4 g/dl (6.4-8.2)
--- NOTE | 2019-12-16 09:18 | EKG ---
Test Reason : Blood Pressure : / mmHG Vent. Rate : 072 BPM Atrial Rate : 072 BPM P-R Int : 176 ms QRS Dur : 084 ms QT Int : 406 ms P-R-T Axes : 058 043 041 degrees QTc Int : 444 ms POOR DATA QUALITY, INTERPRETATION MAY BE ADVERSELY AFFECTED NORMAL SINUS RHYTHM WITH SINUS ARRHYTHMIA NONSPECIFIC T WAVE ABNORMALITY ABNORMAL ECG NO PREVIOUS ECGS AVAILABLE Confirmed by CATA HERNANDEZ, GURINDER ([id number]) on 12/16/2019 9:17:54 AM Referred By: Confirmed By:GURINDER IVY MD
--- NOTE | 2019-12-16 11:39 | CON.CARD ---
Cardiology Consult (text) - Consultation Consultation Note: cc: cp hpi: 54 f hx cad s/p pci 15 yrs ago for angina, htn, here with cp. No hx of angina or frequent cp. Yesterday was at rest and felt central chest sharp pain. No associated sxs or radiation. Resolved in few minutes. No sob palps dizzy loc pnd orthopnea le edema. Feels well now, no further cp. pmh: per hpi psh: pci social: ex tob fam: no premature cad, scd ros: per hpi; all others nl meds: Home Medications Medication Instructions Recorded Clonazepam [Klonopin] 2 mg PO HS PRN 06/26/13 Bupropion HCl [Wellbutrin -] 150 mg PO DAILY 03/18/16 traZODone HCL [Desyrel -] 50 mg PO HS 12/16/19 pe: Vital Signs Period Temp Pulse Resp BP Sys/Mccarty Pulse Ox Last 24 Hr 97.5 F-97.7 F 74-88 18-20 98-125/50-79 98-100 nad no jvd rrr s1s2 no mrg cta bl nl eff aao3 no le e/c/c abd nt nd pos bs no jaundice diaphoresis pos dp pt no caroitd bruits Laboratory Last Values WBC 4.3 K/mm3 (4.0-10.0) 12/16/19 07:00 RBC 3.98 M/mm3 (3.60-5.2) 12/16/19 07:00 Hgb 12.0 GM/dL (10.7-15.3) 12/16/19 07:00 Hct 35.0 % (32.4-45.2) 12/16/19 07:00 MCV 88.1 fl (80-96) 12/16/19 07:00 MCH 30.2 pg (25.7-33.7) 12/16/19 07:00 MCHC 34.3 g/dl (32.0-36.0) 12/16/19 07:00 RDW 13.8 % (11.6-15.6) 12/16/19 07:00 Plt Count 267 K/MM3 (134-434) 12/16/19 07:00 MPV 8.2 fl (7.5-11.1) 12/16/19 07:00 Absolute Neuts (auto) 3.5 K/mm3 (1.5-8.0) 12/15/19 20:49 Neutrophils % 62.0 % (42.8-82.8) 12/15/19 20:49 Lymphocytes % 29.9 % (8-40) 12/15/19 20:49 Monocytes % 4.8 % (3.8-10.2) 12/15/19 20:49 Eosinophils % 2.6 % (0-4.5) 12/15/19 20:49 Basophils % 0.7 % (0-2.0) 12/15/19 20:49 Nucleated RBC % 0 % (0-0) 12/15/19 20:49 Sodium 139 mmol/L (136-145) 12/16/19 07:00 Potassium 4.1 mmol/L (3.5-5.1) 12/16/19 07:00 Chloride 106 mmol/L (98-107) 12/16/19 07:00 Carbon Dioxide 25 mmol/L (21-32) 12/16/19 07:00 Anion Gap 8 MMOL/L (8-16) 12/16/19 07:00 BUN 17.1 mg/dL (7-18) 12/16/19 07:00 Creatinine 0.8 mg/dL (0.55-1.3) 12/16/19 07:00 Est GFR (CKD-EPI)AfAm 95.52 12/16/19 07:00 Est GFR (CKD-EPI)NonAf 82.42 12/16/19 07:00 Random Glucose 82 mg/dL (74-106) 12/16/19 07:00 Hemoglobin A1c % 5.1 % (4.2-6.3) 12/16/19 07:00 Calcium 8.5 mg/dL (8.5-10.1) 12/16/19 07:00 Phosphorus 4.3 mg/dL (2.5-4.9) 12/16/19 07:00 Magnesium 2.3 mg/dL (1.8-2.4) 12/16/19 07:00 Total Bilirubin 0.3 mg/dL (0.2-1) 12/16/19 07:00 AST 20 U/L (15-37) 12/16/19 07:00 ALT 22 U/L (13-61) 12/16/19 07:00 Alkaline Phosphatase 71 U/L (45-117) 12/16/19 07:00 Creatine Kinase 73 U/L (26-192) 12/15/19 20:49 Troponin I < 0.02 ng/ml (0.00-0.05) 12/16/19 03:19 Total Protein 6.4 g/dl (6.4-8.2) 12/16/19 07:00 Albumin 3.7 g/dl (3.4-5.0) 12/16/19 07:00 Triglycerides 204 mg/dL (0-150) H 12/16/19 07:00 Cholesterol 211 mg/dL (50-200) H 12/16/19 07:00 Total LDL Cholesterol 85 mg/dL (5-100) 12/16/19 07:00 HDL Cholesterol 96 mg/dL (40-60) H 12/16/19 07:00 TSH 1.91 uIU/ml (0.358-3.74) 12/16/19 07:00 cxr: clear lungs ecg: sr nl intervals no ischemic changes a/p: 54 f hx cad s/p pci 15 yrs ago for angina, htn, here with cp. cp: -atypical features, resolved -trops negx2, ecg unremarkable. no signs acs. -pt can f/u as outpt this week for stress testing cad, remote pci: -as above -pt should be on asa 81 and statin, atorva 40 qd given remote pci htn: -stable here
[2019-12-16 11:55] LABS: COCAINE, UR NEGATIVE ng/ml (CUTOFF=300); METHADONE, UR NEGATIVE ng/ml (CUTOFF=300); OPIATES, URI NEGATIVE ng/ml (CUTOFF=300); PHENCYCLIDINE,URINE NEGATIVE ng/ml (CUTOFF=25); URINE BARBITURATES NEGATIVE ng/ml (CUTOFF=200); URINE BENZODIAZEPINES NEGATIVE ng/ml (CUTOFF=200)
[2019-12-16 12:09] LABS: URINE AMPHETAMINES POSITIVE ng/ml (CUTOFF=500)
--- NOTE | 2019-12-16 12:18 | PN ---
Progress Note (short form) - Note Progress Note: Vital Signs Temperature 97.5 F L 12/16/19 07:02 Pulse Rate 74 12/16/19 07:02 Respiratory Rate 18 12/16/19 07:02 Blood Pressure 98/64 12/16/19 07:02 O2 Sat by Pulse Oximetry (%) 99 12/16/19 07:02 CBCD WBC 4.3 K/mm3 (4.0-10.0) 12/16/19 07:00 RBC 3.98 M/mm3 (3.60-5.2) 12/16/19 07:00 Hgb 12.0 GM/dL (10.7-15.3) 12/16/19 07:00 Hct 35.0 % (32.4-45.2) 12/16/19 07:00 MCV 88.1 fl (80-96) 12/16/19 07:00 MCHC 34.3 g/dl (32.0-36.0) 12/16/19 07:00 RDW 13.8 % (11.6-15.6) 12/16/19 07:00 Plt Count 267 K/MM3 (134-434) 12/16/19 07:00 MPV 8.2 fl (7.5-11.1) 12/16/19 07:00 CMP Sodium 139 mmol/L (136-145) 12/16/19 07:00 Potassium 4.1 mmol/L (3.5-5.1) 12/16/19 07:00 Chloride 106 mmol/L (98-107) 12/16/19 07:00 Carbon Dioxide 25 mmol/L (21-32) 12/16/19 07:00 Anion Gap 8 MMOL/L (8-16) 12/16/19 07:00 BUN 17.1 mg/dL (7-18) 12/16/19 07:00 Creatinine 0.8 mg/dL (0.55-1.3) 12/16/19 07:00 Random Glucose 82 mg/dL (74-106) 12/16/19 07:00 Calcium 8.5 mg/dL (8.5-10.1) 12/16/19 07:00 Total Bilirubin 0.3 mg/dL (0.2-1) 12/16/19 07:00 AST 20 U/L (15-37) 12/16/19 07:00 ALT 22 U/L (13-61) 12/16/19 07:00 Alkaline Phosphatase 71 U/L (45-117) 12/16/19 07:00 Total Protein 6.4 g/dl (6.4-8.2) 12/16/19 07:00 Albumin 3.7 g/dl (3.4-5.0) 12/16/19 07:00 CARDIAC ENZYMES Creatine Kinase 73 U/L (26-192) 12/15/19 20:49 Troponin I < 0.02 ng/ml (0.00-0.05) 12/16/19 03:19 Current Medications Generic Name Dose Route Start Last Admin Trade Name Freq PRN Reason Stop Dose Admin Sodium Chloride 1,000 mls @ 83 mls/hr 12/16/19 00:30 12/16/19 01:28 Normal Saline - IV 12/16/19 12:33 83 mls/hr ASDIR WILLIAM Administration Simethicone 80 mg 12/16/19 00:19 Mylicon - PO Q4H PRN GAS Home Medications Medication Instructions Recorded Clonazepam [Klonopin] 2 mg PO HS PRN 06/26/13 Bupropion HCl [Wellbutrin -] 150 mg PO DAILY 03/18/16 traZODone HCL [Desyrel -] 50 mg PO HS 12/16/19
--- NOTE | 2019-12-16 12:48 | DS ---
Physical Exam: SUBJECTIVE: Patient seen and examined Patient is feeling better with no acute distress OBJECTIVE: Vital Signs Temperature 97.5 F L 12/16/19 07:02 Pulse Rate 74 12/16/19 07:02 Respiratory Rate 18 12/16/19 07:02 Blood Pressure 98/64 12/16/19 07:02 O2 Sat by Pulse Oximetry (%) 99 12/16/19 07:02 PHYSICAL EXAM GENERAL: The patient is awake, alert, and fully oriented, in no acute distress. HEAD: Normal with no signs of trauma. EYES: PERRL, extraocular movements intact, sclera anicteric, conjunctiva clear. ENT: Ears normal, nares patent, oropharynx clear without exudates, moist mucous membranes. NECK: Trachea midline, full range of motion, supple. LUNGS: Breath sounds equal, clear to auscultation bilaterally, no wheezes, no crackles, no accessory muscle use. HEART: Regular rate and rhythm, S1, S2 without murmur, rub or gallop. ABDOMEN: Soft, nontender, nondistended, normoactive bowel sounds, no guarding, no rebound, no hepatosplenomegaly, no masses. EXTREMITIES: 2+ pulses, warm, well-perfused, no edema. NEUROLOGICAL: Cranial nerves II through XII grossly intact. Normal speech, gait not observed. PSYCH: Normal mood, normal affect. SKIN: Warm, dry, normal turgor, no rashes or lesions noted. LABS Laboratory Results - last 24 hr 12/15/19 12/15/19 12/16/19 20:49 20:49 03:19 WBC 5.6 RBC 4.37 Hgb 13.0 Hct 38.7 MCV 88.5 MCH 29.7 MCHC 33.6 RDW 13.7 Plt Count 309 MPV 8.8 Absolute Neuts (auto) 3.5 Neutrophils % 62.0 Lymphocytes % 29.9 Monocytes % 4.8 Eosinophils % 2.6 Basophils % 0.7 Nucleated RBC % 0 Sodium 137 Potassium 4.5 Chloride 103 Carbon Dioxide 26 Anion Gap 8 BUN 17.7 Creatinine 0.8 Est GFR (CKD-EPI)AfAm 95.52 Est GFR (CKD-EPI)NonAf 82.42 Random Glucose 62 L Hemoglobin A1c % Calcium 9.2 Phosphorus Magnesium Total Bilirubin 0.5 AST 21 ALT 27 Alkaline Phosphatase 67 Creatine Kinase 73 Troponin I < 0.02 < 0.02 Total Protein 7.2 Albumin 4.4 Triglycerides Cholesterol Total LDL Cholesterol HDL Cholesterol TSH Opiates Screen Methadone Screen Barbiturate Screen Phencyclidine Screen Ur Amphetamines Screen MDMA (Ecstasy) Screen Benzodiazepines Screen Cocaine Screen U Marijuana (THC) Screen 12/16/19 12/16/19 12/16/19 07:00 07:00 07:00 WBC 4.3 RBC 3.98 Hgb 12.0 Hct 35.0 MCV 88.1 MCH 30.2 MCHC 34.3 RDW 13.8 Plt Count 267 MPV 8.2 Absolute Neuts (auto) Neutrophils % Lymphocytes % Monocytes % Eosinophils % Basophils % Nucleated RBC % Sodium 139 Potassium 4.1 Chloride 106 Carbon Dioxide 25 Anion Gap 8 BUN 17.1 Creatinine 0.8 Est GFR (CKD-EPI)AfAm 95.52 Est GFR (CKD-EPI)NonAf 82.42 Random Glucose 82 Hemoglobin A1c % 5.1 Calcium 8.5 Phosphorus 4.3 Magnesium 2.3 Total Bilirubin 0.3 AST 20 ALT 22 Alkaline Phosphatase 71 Creatine Kinase Troponin I Total Protein 6.4 Albumin 3.7 Triglycerides 204 H Cholesterol 211 H Total LDL Cholesterol 85 HDL Cholesterol 96 H TSH 1.91 Opiates Screen Methadone Screen Barbiturate Screen Phencyclidine Screen Ur Amphetamines Screen MDMA (Ecstasy) Screen Benzodiazepines Screen Cocaine Screen U Marijuana (THC) Screen 12/16/19 11:27 WBC RBC Hgb Hct MCV MCH MCHC RDW Plt Count MPV Absolute Neuts (auto) Neutrophils % Lymphocytes % Monocytes % Eosinophils % Basophils % Nucleated RBC % Sodium Potassium Chloride Carbon Dioxide Anion Gap BUN Creatinine Est GFR (CKD-EPI)AfAm Est GFR (CKD-EPI)NonAf Random Glucose Hemoglobin A1c % Calcium Phosphorus Magnesium Total Bilirubin AST ALT Alkaline Phosphatase Creatine Kinase Troponin I Total Protein Albumin Triglycerides Cholesterol Total LDL Cholesterol HDL Cholesterol TSH Opiates Screen Negative Methadone Screen Negative Barbiturate Screen Negative Phencyclidine Screen Negative Ur Amphetamines Screen Positive A* MDMA (Ecstasy) Screen Positive A* Benzodiazepines Screen Negative Cocaine Screen Negative U Marijuana (THC) Screen Negative CBCD WBC 4.3 K/mm3 (4.0-10.0) 12/16/19 07:00 RBC 3.98 M/mm3 (3.60-5.2) 12/16/19 07:00 Hgb 12.0 GM/dL (10.7-15.3) 12/16/19 07:00 Hct 35.0 % (32.4-45.2) 12/16/19 07:00 MCV 88.1 fl (80-96) 12/16/19 07:00 MCHC 34.3 g/dl (32.0-36.0) 12/16/19 07:00 RDW 13.8 % (11.6-15.6) 12/16/19 07:00 Plt Count 267 K/MM3 (134-434) 12/16/19 07:00 MPV 8.2 fl (7.5-11.1) 12/16/19 07:00 CMP Sodium 139 mmol/L (136-145) 12/16/19 07:00 Potassium 4.1 mmol/L (3.5-5.1) 12/16/19 07:00 Chloride 106 mmol/L (98-107) 12/16/19 07:00 Carbon Dioxide 25 mmol/L (21-32) 12/16/19 07:00 Anion Gap 8 MMOL/L (8-16) 12/16/19 07:00 BUN 17.1 mg/dL (7-18) 12/16/19 07:00 Creatinine 0.8 mg/dL (0.55-1.3) 12/16/19 07:00 Random Glucose 82 mg/dL (74-106) 12/16/19 07:00 Calcium 8.5 mg/dL (8.5-10.1) 12/16/19 07:00 Total Bilirubin 0.3 mg/dL (0.2-1) 12/16/19 07:00 AST 20 U/L (15-37) 12/16/19 07:00 ALT 22 U/L (13-61) 12/16/19 07:00 Alkaline Phosphatase 71 U/L (45-117) 12/16/19 07:00 Total Protein 6.4 g/dl (6.4-8.2) 12/16/19 07:00 Albumin 3.7 g/dl (3.4-5.0) 12/16/19 07:00 CARDIAC ENZYMES Creatine Kinase 73 U/L (26-192) 12/15/19 20:49 Troponin I < 0.02 ng/ml (0.00-0.05) 12/16/19 03:19 Home Medications Medication Instructions Recorded Clonazepam [Klonopin] 2 mg PO HS PRN 06/26/13 Bupropion HCl [Wellbutrin -] 150 mg PO DAILY 03/18/16 Aspirin [Ecotrin] 81 mg PO DAILY #30 tablet. 12/16/19 Atorvastatin Ca [Lipitor] 20 mg PO HS #30 tablet 12/16/19 traZODone HCL [Desyrel -] 50 mg PO HS 12/16/19 HOSPITAL COURSE: Date of Admission:12/15/19 Date of Discharge: 12/16/19 Patient is an 54yof with PMhx of cad s/p pci 15 yrs ago for angina, presented with chest pain that lasted for 10 minutes only, and came to ED. for further care. Not associated sxs or radiation. No sob palps dizzy loc pnd orthopnea le edema. Feels well now, no further cp.wants to go home, and follow up with cardio for further stress test and echo. low fat diet, follow with cadio for stress test and an echo with Minutes to complete discharge: 35 Discharge Summary Problems reviewed: Yes Reason For Visit: CHEST PAIN Current Active Problems Chest pain (Acute) Condition: Stable - Instructions Diet, Activity, Other Instructions: follow with low fat diet echo and stress test as an outpatient follow up with within a week period for a stress test and an echo test. Referrals: Llua Arango MD [Primary Care Provider] - Raul Dawn MD [Staff Physician] - 1 Week - Home Medications Comprehensive Discharge Medication List: Ambulatory Orders Clonazepam [Klonopin] 2 mg PO HS PRN 06/26/13 Bupropion HCl [Wellbutrin -] 150 mg PO DAILY 03/18/16 Aspirin [Ecotrin] 81 mg PO DAILY #30 tablet. 12/16/19 Atorvastatin Ca [Lipitor] 20 mg PO HS #30 tablet 12/16/19 traZODone HCL [Desyrel -] 50 mg PO HS 12/16/19 This patient is new to me today: Yes Date on this admission: 12/16/19 Emergency Visit: Yes ED Registration Date: 12/15/19 Care time: The patient presented to the Emergency Department on the above date and was hospitalized for further evaluation of their emergent condition. Critical Care patient: No - Discharge Referral Referred to [facility] No
[2019-12-16 14:48] VITALS: BP 108/75; PULSE 78; TEMP 97.9
[2019-12-16] MEDS ORDERED: ATORVASTATIN CA 20 MG TABLET (FP) PO SCH (22:00)
[2019-12-17] MEDS ORDERED: ASPIRIN COATED 81 MG TABLET.EC PO SCH (10:00)
== END 2019-12-16 14:49 | disposition home or self-care (01) ==
LOC: JER 18:29 → JERBED 22:48
PROVIDERS: ADMIT Internal Medicine; ATTEND Internal Medicine
PROC: 3E0337Z Introduction of Electrolytic and Water Balance Substance into Peripheral Vein, Percutaneous Approach (ICD-10-PCS; principal; 2019-12-15)
DX: R07.89 Other chest pain (principal); I10 Essential (primary) hypertension; F41.9 Anxiety disorder, unspecified; F32.9 Major depressive disorder, single episode, unspecified; I25.10 Atherosclerotic heart disease of native coronary artery without angina pectoris; Z87.891 Personal history of nicotine dependence; Z95.5 Presence of coronary angioplasty implant and graft
CPT/HCPCS: 36415; 71046-TC-FY; 80053; 80061; 80307; 82550; 83036; 83721; 83735; 84100; 84443; 84484; 85025; 85027; 93005; 93010; 99285-25; G0378; G0480; J7030

== ENCOUNTER 2023-07-17 14:31 | Emergency (ER) | payer OTHER ==
[2023-07-17 14:39] VITALS: BMI 23.3
[2023-07-17] MEDS ORDERED: METOCLOPRAMIDE HCL INJECTION 10 MG/2 ML VIAL IVPUSH ONE (15:04)
[2023-07-17] MEDS ORDERED: ACETAMINOPHEN 1000 MG/100 ML BAG IVPB ONE (15:04)
[2023-07-17] MEDS ORDERED: METOCLOPRAMIDE HCL INJECTION 10 MG/2 ML VIAL ONE (15:12)
[2023-07-17] MEDS ORDERED: ACETAMINOPHEN INJECTION 100 ML IVPB ONE (15:12)
[2023-07-17] MEDS ORDERED: SODIUM CHLORIDE 1,000 ML IV ONE (15:44)
[2023-07-17] MEDS ORDERED: MECLIZINE HCL 25 MG TABLET (FP) PO ONE (15:44)
[2023-07-17 16:31] LABS: MCH 28.3 pg (25.7-33.7); MCHC 33.2 g/dl (32.0-36.0); MEAN CELL VOLUME 85.4 fl (80-96); MEAN PLT VOLUME 8.4 fl (7.5-11.1); PLATELET COUNT 235.7 10^3/uL (134-434); RBC 3.87 10^6/uL (3.60-5.2); RDW 14.6 % (11.6-15.6); WHITE BLOOD COUNT 4.5 10^3/uL (4.0-10.8)
[2023-07-17] MEDS ORDERED: MECLIZINE HCL 25 MG TABLET (FP) ONE (16:42)
[2023-07-17 16:43] LABS: ALBUMIN 4.1 g/dl (3.4-5.0); BLOOD UREA NITROGEN 19.9 mg/dl (7-18); CALCIUM 9.1 mg/dl (8.5-10.1); POTASSIUM 4.2 mmol/L (3.5-5.1); SGOT/AST 30.4 U/L (15-37); SGPT/ALT 23.3 U/L (7-52); TOT PROT 6.2 g/dl (6.4-8.2)
[2023-07-17] MEDS ORDERED: MAGNESIUM 1GM/D5W - 1 GM/100 ML IVPB IVPB ONE ×2 (16:49→16:58)
[2023-07-17] MEDS ORDERED: KETOROLAC TROMETHAMINE 30 MG/1 ML VIAL IVPUSH ONE (16:49)
[2023-07-17] MEDS ORDERED: KETOROLAC TROMETHAMINE 15 MG/ML VIAL ONE (16:58)
[2023-07-17 17:08] LABS: PLATELET ESTIMATE ADEQUATE
[2023-07-17 17:51] VITALS: BP 122/72; PULSE 78; RESP 18; TEMP 98.7
[2023-07-17 19:46] LABS: BILIRUBIN,TOTAL 0.3 mg/dL (0.2-1)
== END 2023-07-17 18:00 | disposition home or self-care (01) ==
LOC: FER 14:31
PROC: 3E033GC Introduction of Other Therapeutic Substance into Peripheral Vein, Percutaneous Approach (ICD-10-PCS; principal; 2023-07-17)
PROC: 3E033NZ Introduction of Analgesics, Hypnotics, Sedatives into Peripheral Vein, Percutaneous Approach (ICD-10-PCS; 2023-07-17)
PROC: 3E0333Z Introduction of Anti-inflammatory into Peripheral Vein, Percutaneous Approach (ICD-10-PCS; 2023-07-17)
PROC: 3E033GC Introduction of Other Therapeutic Substance into Peripheral Vein, Percutaneous Approach (ICD-10-PCS; 2023-07-17)
PROC: 3E0337Z Introduction of Electrolytic and Water Balance Substance into Peripheral Vein, Percutaneous Approach (ICD-10-PCS; 2023-07-17)
DX: G44.209 Tension-type headache, unspecified, not intractable (principal); H53.71 Glare sensitivity; R42 Dizziness and giddiness; G47.00 Insomnia, unspecified; R11.0 Nausea
CPT/HCPCS: 36415; 70450-TC; 80053; 85027; 93005; 99285-25